=== PATIENT | female | born 1960 | race Caucasian/White ===

== ENCOUNTER 2023-09-19 11:39 | Emergency (ER) | payer OTHER, SELFPAY ==
[2023-09-19 11:42] VITALS: BP 153/76; PULSE 99; RESP 24; TEMP 37.1; O2SAT 98; BMI 31.1
[2023-09-19 11:59] VITALS: PULSE 83; RESP 20; O2SAT 99
[2023-09-19] MEDS: ALBUTEROL/IPRATROPIUM 3 ML AMPUL INH (11:59)
--- NOTE | 2023-09-19 11:59 | ED.GENADULT ---
HPI - General Adult General Chief complaint: Shortness of Breath/Dyspnea Stated complaint: asthma Time Seen by Provider: 09/19/23 11:53 Source: patient Mode of arrival: Family Vehicle History of Present Illness HPI narrative: Patient is a 63-year-old female. She does have history of asthma. She states she occasionally uses her albuterol inhaler. She states that there has been some construction going on in her house and she thinks that that triggered her asthma today. Has been using her albuterol inhaler quite a bit over the past 24 hours without much improvement. No fevers. Related Data Allergies Allergy/AdvReac Type Severity Reaction Status Date / Time bisacodyl Allergy Verified 09/19/23 11:53 gabapentin Allergy Verified 09/19/23 11:53 Sulfa (Sulfonamide Allergy Verified 09/19/23 11:53 Antibiotics) Review of Systems Constitutional Constitutional: Reports system reviewed and no additional complaints, except as documented Cardiovascular Cardiovascular: Reports system reviewed and no additional complaints, except as documented Respiratory Respiratory: Reports system reviewed and no additional complaints, except as documented Exam Initial Vital Signs Initial Vital Signs: Vital Signs Temperature 98.7 F 09/19/23 11:42 Pulse Rate 99 H 09/19/23 11:42 Respiratory Rate 24 09/19/23 11:42 Blood Pressure 153/76 H 09/19/23 11:42 Pulse Oximetry 98 09/19/23 11:42 Oxygen Delivery Method Room Air 09/19/23 11:42 Const General: comfortable HENMT Head: normal to inspection and normocephalic Resp Other: End expiratory wheezes. Is tachypneic, not hypoxic Cardio Rate: regular rate Rhythm: regular rhythm Skin General: no rashes or lesions noted Neuro General: patient alert, patient awake and moves all extremities Course Orders Ordered: Discontinued Medications Albuterol/Ipratropium (Albuterol/Ipratropium 3 Ml Ampul) 3 ml INH NOW ONE Stop: 09/19/23 11:54 Last Admin: 09/19/23 11:59 Dose: 3 ml Documented By: KIT Vital Signs Vital signs: Vital Signs - 8 hr 09/19/23 11:42 09/19/23 11:59 Temperature 98.7 F Pulse Rate 99 H 83 Respiratory Rate 24 20 Blood Pressure 153/76 H Pulse Oximetry 98 99 Oxygen Delivery Method Room Air Room Air Oxygen Flow Rate 0 Fraction of Inspired Oxygen 21 Medical Decision Making MDM Narrative Medical decision making narrative: With after 1 DuoNeb patient states she was feeling much better. Continues to be not hypoxic. Lungs are now clear. She states she feels comfortable going home. I do feel that we can hold on any imaging studies for now. No indication for antibiotics. We will hold on steroids for now. She was given return precautions. She expressed understanding and agreement. Discharge Plan Departure Patient Disposition: Home Clinical Impression: Asthma with exacerbation Instructions: DI for Asthma -- Adult Activity Restrictions/Additional Instructions: Continue to take all of your medications as directed. Contact your primary provider for a follow-up. Return to the emergency department for new or worsening symptoms. Referrals: Miscellaneous,[facility] [Primary Care Provider] - Stand Alone Forms: Patient Portal/API
== END 2023-09-19 12:35 | disposition home or self-care (01) ==
PROVIDERS: Emergency Provider Emergency Medicine
DX: J45.901 Unspecified asthma with (acute) exacerbation (principal)
CPT/HCPCS: 94640; 99283; 99284